=== PATIENT | male | born 1985 | race Caucasian/White ===

== ENCOUNTER 2019-03-16 16:49 | Emergency (ER) | payer SELFPAY ==
[2019-03-16 16:55] VITALS: BP 137/79; PULSE 102; RESP 16; TEMP 39.1; O2SAT 95; BMI 29.5
[2019-03-16 17:40] VITALS: TEMP 39.1
[2019-03-16] MEDS: ACETAMINOPHEN 325 MG TABLET 975 MG PO (17:40)
--- NOTE | 2019-03-16 18:17 | DI.RAD.S_ITS ---
PROCEDURE: XR CHEST 2V INDICATIONS: +flu, sob, cough TECHNIQUE: 2 views of the chest were acquired. COMPARISON: None. FINDINGS: Surgical changes and devices: None. Lungs and pleura: Lungs are clear. No pleural effusions or pneumothorax. Mediastinum: Mediastinal contours are normal. Heart size is normal. Bones and chest wall: No suspicious bony abnormalities. Soft tissues appear unremarkable. IMPRESSION: No evidence acute pulmonary process. Dictated by: Saul Stuart M.D. on 03/16/2019 at 18:59 Approved by: Saul Stuart M.D. on 03/16/2019 at 19:00
[2019-03-16 19:08] VITALS: BP 119/80; PULSE 80; RESP 18; TEMP 37.5; O2SAT 96
[2019-03-16 19:25] VITALS: TEMP 37.4
--- NOTE | 2019-03-16 19:27 | ED.URI ---
HPI - URI/Sore Throat <MICHA Smart - Last Filed: 03/16/19 21:13> General Chief Complaint: Upper Respiratory Symptoms Stated Complaint: FEVER,COUGH Time Seen by Provider: 03/16/19 18:01 Source: patient Mode of arrival: ambulatory Limitations: no limitations History of Present Illness HPI Narrative: Patient is a 33-year-old male a nonsmoker who presents with a chief complaint of fever, cough and shortness of breath since Tuesday. He has not taken anything for pain or for fever. He denies any nausea vomiting or diarrhea. Denies any sore throat or ear pain. He states he has a persistent dry cough. He is concerned about pneumonia. He denies any chest pain. Related Data Allergies Allergy/AdvReac Type Severity Reaction Status Date / Time No Known Drug Allergies Allergy Verified 03/16/19 17:01 Review of Systems <MICHA Smart - Last Filed: 03/16/19 21:13> Review of Systems GENERAL: Denies chills, fatigue, malaise, fever, sweats. HEENT: Denies sinus pain, ear pain, sore throat, difficulty swallowing, dizziness. RESPIRATORY: See HPI CARDIOVASCULAR: Denies chest pain, palpitations, orthopnea, edema, GASTROINTESTINAL: Denies nausea, vomiting, abdominal pain, diarrhea, constipation, melena. : Denies dysuria, frequency, incontinence, hematuria, urinary retention. MUSCULOSKELETAL: denies weakness, joint pain, or bony pain SKIN: Denies rash, skin lesions, or other NEUROLOGIC: Denies weakness, headache, numbness, change in speech, confusion, seizures, incoordination. PSYCHIATRIC: No concerning psychosocial issues. 12 point review of systems is negative except for those stated above PFSH <MICHA Smart - Last Filed: 03/16/19 21:13> Social History Smoking Status: Unknown if ever smoked Social History Smoking Status: Unknown if ever smoked Exam <MICHA Smart - Last Filed: 03/16/19 21:13> Narrative Exam Narrative: GENERAL: This is a well-nourished, well-developed patient, no acute distress HEAD: Atraumatic. Normocephalic. No temporal or scalp tenderness. EYES: Pupils equal round and reactive. Extraocular motions intact. No scleral icterus. No injection or drainage. ENT: Nose without bleeding, purulent drainage or septal hematoma. Throat without erythema, tonsillar hypertrophy or exudate. Uvula midline. Airway patent. NECK: Trachea midline. No JVD or lymphadenopathy. Supple, nontender, no meningeal signs. CARDIOVASCULAR: Regular rate and rhythm without murmurs, gallops, or rubs. RESPIRATORY: Clear to auscultation. Breath sounds equal bilaterally. No wheezes, rales, or rhonchi. Occasional cough on exam. No accessory muscle use. GASTROINTESTINAL: Abdomen soft, non-tender, nondistended. No hepato-splenomegaly, or palpable masses. No guarding. active bowel sounds all 4 quadrants EXTREMITIES: No clubbing, cyanosis, or edema. No joint tenderness, effusion, or edema noted. BACK: Nontender without deformity or crepitance. No flank tenderness. NEURO: AOx3. SKIN: No rash or erythema. Initial Vital Signs Initial Vital Signs: Vital Signs Temperature 102.4 F H 03/16/19 16:55 Pulse Rate 102 H 03/16/19 16:55 Respiratory Rate 16 03/16/19 16:55 Blood Pressure 137/79 03/16/19 16:55 Pulse Oximetry 95 03/16/19 16:55 <Marty Mayfield DO - Last Filed: 03/17/19 01:09> Initial Vital Signs Initial Vital Signs: Vital Signs Temperature 102.4 F H 03/16/19 16:55 Pulse Rate 102 H 03/16/19 16:55 Respiratory Rate 16 03/16/19 16:55 Blood Pressure 137/79 03/16/19 16:55 Pulse Oximetry 95 03/16/19 16:55 Course <MICHA Smart - Last Filed: 03/16/19 21:13> Orders Ordered: ED Orders 03/16/19 17:04 Influenza A and B by PCR Rapid Stat 03/16/19 18:17 XR chest 2V Stat Discontinued Medications Acetaminophen (Tylenol) 975 mg PO NOW ONE Stop: 03/16/19 17:39 Last Admin: 03/16/19 17:40 Dose: 975 mg Vital Signs - 8 hr 03/16/19 17:40 03/16/19 19:08 03/16/19 19:25 Temperature 102.4 F H 99.5 F 99.4 F Pulse Rate 80 Respiratory Rate 18 Blood Pressure Blood Pressure [Right Arm] 119/80 Pulse Oximetry 96 03/16/19 19:56 Temperature 98.9 F Pulse Rate 84 Respiratory Rate 16 Blood Pressure 114/84 Blood Pressure [Right Arm] Pulse Oximetry 99 <Marty Mayfield DO - Last Filed: 03/17/19 01:09> Orders Ordered: ED Orders 03/16/19 17:04 Influenza A and B by PCR Rapid Stat 03/16/19 18:17 XR chest 2V Stat Discontinued Medications Acetaminophen (Tylenol) 975 mg PO NOW ONE Stop: 03/16/19 17:39 Last Admin: 03/16/19 17:40 Dose: 975 mg Vital Signs - 8 hr 03/16/19 17:40 03/16/19 19:08 03/16/19 19:25 Temperature 102.4 F H 99.5 F 99.4 F Pulse Rate 80 Respiratory Rate 18 Blood Pressure Blood Pressure [Right Arm] 119/80 Pulse Oximetry 96 03/16/19 19:56 Temperature 98.9 F Pulse Rate 84 Respiratory Rate 16 Blood Pressure 114/84 Blood Pressure [Right Arm] Pulse Oximetry 99 MDM - URI/Sore Throat <MICHA Smart - Last Filed: 03/16/19 21:13> Lab Data Lab Results 03/16/19 Range/Units 17:04 Influenza A & B (PCR) Positive, type b H (Negative) Imaging Data Chest x-ray: Radiologist's impression: Ashish Solorzano 33 M [address] [address] XRay Report Signed Patient: Jeanine,Ashish JMR#: [id number] : 1985Acct:[id number] Age/Sex: 33 / MDate of Service: 03/16/19 Loc: ED Accession Number: [id number] Procedure: XR chest 2V Ordering Provider: Brinda Crane PROCEDURE: XR CHEST 2V INDICATIONS: +flu, sob, cough TECHNIQUE: 2 views of the chest were acquired. COMPARISON: None. FINDINGS: Surgical changes and devices: None. Lungs and pleura: Lungs are clear. No pleural effusions or pneumothorax. Mediastinum: Mediastinal contours are normal. Heart size is normal. Bones and chest wall: No suspicious bony abnormalities. Soft tissues appear unremarkable. IMPRESSION: No evidence acute pulmonary process. Dictated by: Saul Stuart M.D. on 03/16/2019 at 18:59 Approved by: Saul Stuart M.D. on 03/16/2019 at 19:00 [facility] Narrative Medical decision making narrative: The patient is a 33-year-old male who presents with chief complaint of fever, shortness of breath and cough since Tuesday. He had a normal chest x-ray. He did test positive for flu B. he is outside of the Tamiflu window. I discussed at length return precautions of shortness of breath, inability keep down fluids etc. Encouraged him to follow up with primary care provider. Encouraged [id number] remedies as needed and able. Patient questions or concerns upon discharge. <Marty Mayfield DO - Last Filed: 03/17/19 01:09> Lab Data Lab Results 03/16/19 Range/Units 17:04 Influenza A & B (PCR) Positive, type b H (Negative) Discharge Plan Departure Patient Disposition: Home Clinical Impression: Influenza Discharge Date/Time: 03/16/19 19:57 Interventions: ED Discharge Assessment Last Done: 03/16/19 19:56 Instructions: DI for Influenza -- Adult Activity Restrictions/Additional Instructions: You tested positive for the flu, but her chest x-ray shows no pneumonia. Please follow up with primary care provider. Please take [id number] medications as needed and able. Please come back to the emergency department for any acute concerns such as chest pain or shortness breath. <Marty Mayfield DO - Last Filed: 03/17/19 01:09> Cosign ED Attending Zainature Attestation: I was available for consultation during this patient's emergency department encounter
--- NOTE | 2019-03-16 19:31 | ED_ITS ---
HPI - URI/Sore Throat <MICHA Smart - Last Filed: 03/16/19 21:13> General Chief Complaint: Upper Respiratory Symptoms Stated Complaint: FEVER,COUGH Time Seen by Provider: 03/16/19 18:01 Source: patient Mode of arrival: ambulatory Limitations: no limitations History of Present Illness HPI Narrative: Patient is a 33-year-old male a nonsmoker who presents with a chief complaint of fever, cough and shortness of breath since Tuesday. He has not taken anything for pain or for fever. He denies any nausea vomiting or diarrhea. Denies any sore throat or ear pain. He states he has a persistent dry cough. He is concerned about pneumonia. He denies any chest pain. Related Data Allergies Allergy/AdvReac Type Severity Reaction Status Date / Time No Known Drug Allergies Allergy Verified 03/16/19 17:01 Review of Systems <MICHA Smart - Last Filed: 03/16/19 21:13> Review of Systems GENERAL: Denies chills, fatigue, malaise, fever, sweats. HEENT: Denies sinus pain, ear pain, sore throat, difficulty swallowing, dizziness. RESPIRATORY: See HPI CARDIOVASCULAR: Denies chest pain, palpitations, orthopnea, edema, GASTROINTESTINAL: Denies nausea, vomiting, abdominal pain, diarrhea, constipation, melena. : Denies dysuria, frequency, incontinence, hematuria, urinary retention. MUSCULOSKELETAL: denies weakness, joint pain, or bony pain SKIN: Denies rash, skin lesions, or other NEUROLOGIC: Denies weakness, headache, numbness, change in speech, confusion, seizures, incoordination. PSYCHIATRIC: No concerning psychosocial issues. 12 point review of systems is negative except for those stated above PFSH <MICHA Smart - Last Filed: 03/16/19 21:13> Social History Smoking Status: Unknown if ever smoked Social History Smoking Status: Unknown if ever smoked Exam <MICHA Smart - Last Filed: 03/16/19 21:13> Narrative Exam Narrative: GENERAL: This is a well-nourished, well-developed patient, no acute distress HEAD: Atraumatic. Normocephalic. No temporal or scalp tenderness. EYES: Pupils equal round and reactive. Extraocular motions intact. No scleral icterus. No injection or drainage. ENT: Nose without bleeding, purulent drainage or septal hematoma. Throat without erythema, tonsillar hypertrophy or exudate. Uvula midline. Airway patent. NECK: Trachea midline. No JVD or lymphadenopathy. Supple, nontender, no meningeal signs. CARDIOVASCULAR: Regular rate and rhythm without murmurs, gallops, or rubs. RESPIRATORY: Clear to auscultation. Breath sounds equal bilaterally. No wheezes, rales, or rhonchi. Occasional cough on exam. No accessory muscle use. GASTROINTESTINAL: Abdomen soft, non-tender, nondistended. No hepato- splenomegaly, or palpable masses. No guarding. active bowel sounds all 4 quadrants EXTREMITIES: No clubbing, cyanosis, or edema. No joint tenderness, effusion, or edema noted. BACK: Nontender without deformity or crepitance. No flank tenderness. NEURO: AOx3. SKIN: No rash or erythema. Initial Vital Signs Initial Vital Signs: Vital Signs Temperature 102.4 F H 03/16/19 16:55 Pulse Rate 102 H 03/16/19 16:55 Respiratory Rate 16 03/16/19 16:55 Blood Pressure 137/79 03/16/19 16:55 Pulse Oximetry 95 03/16/19 16:55 <Marty Mayfield DO - Last Filed: 03/17/19 01:09> Initial Vital Signs Initial Vital Signs: Vital Signs Temperature 102.4 F H 03/16/19 16:55 Pulse Rate 102 H 03/16/19 16:55 Respiratory Rate 16 03/16/19 16:55 Blood Pressure 137/79 03/16/19 16:55 Pulse Oximetry 95 03/16/19 16:55 Course <MICHA Smart - Last Filed: 03/16/19 21:13> Orders Ordered: ED Orders 03/16/19 17:04 Influenza A and B by PCR Rapid Stat 03/16/19 18:17 XR chest 2V Stat Discontinued Medications Acetaminophen (Tylenol) 975 mg PO NOW ONE Stop: 03/16/19 17:39 Last Admin: 03/16/19 17:40 Dose: 975 mg Vital Signs - 8 hr 03/16/19 17:40 03/16/19 19:08 03/16/19 19:25 Temperature 102.4 F H 99.5 F 99.4 F Pulse Rate 80 Respiratory Rate 18 Blood Pressure Blood Pressure [Right Arm] 119/80 Pulse Oximetry 96 03/16/19 19:56 Temperature 98.9 F Pulse Rate 84 Respiratory Rate 16 Blood Pressure 114/84 Blood Pressure [Right Arm] Pulse Oximetry 99 <Marty Mayfield DO - Last Filed: 03/17/19 01:09> Orders Ordered: ED Orders 03/16/19 17:04 Influenza A and B by PCR Rapid Stat 03/16/19 18:17 XR chest 2V Stat Discontinued Medications Acetaminophen (Tylenol) 975 mg PO NOW ONE Stop: 03/16/19 17:39 Last Admin: 03/16/19 17:40 Dose: 975 mg Vital Signs - 8 hr 03/16/19 17:40 03/16/19 19:08 03/16/19 19:25 Temperature 102.4 F H 99.5 F 99.4 F Pulse Rate 80 Respiratory Rate 18 Blood Pressure Blood Pressure [Right Arm] 119/80 Pulse Oximetry 96 03/16/19 19:56 Temperature 98.9 F Pulse Rate 84 Respiratory Rate 16 Blood Pressure 114/84 Blood Pressure [Right Arm] Pulse Oximetry 99 MDM - URI/Sore Throat <MICHA Smart - Last Filed: 03/16/19 21:13> Lab Data Lab Results 03/16/19 Range/Units 17:04 Influenza A & B (PCR) Positive, type b H (Negative) Imaging Data Chest x-ray: Radiologist's impression: Ashish Solorzano 33 M [address] [address] XRay Report Signed Patient: Jeanine,Ashish JMR#: [id number] : 1985Acct:[id number] Age/Sex: 33 / MDate of Service: 03/16/19 Loc: ED Accession Number: [id number] Procedure: XR chest 2V Ordering Provider: Brinda Crane PROCEDURE: XR CHEST 2V INDICATIONS: +flu, sob, cough TECHNIQUE: 2 views of the chest were acquired. COMPARISON: None. FINDINGS: Surgical changes and devices: None. Lungs and pleura: Lungs are clear. No pleural effusions or pneumothorax. Mediastinum: Mediastinal contours are normal. Heart size is normal. Bones and chest wall: No suspicious bony abnormalities. Soft tissues appear unremarkable. IMPRESSION: No evidence acute pulmonary process. Dictated by: Saul Stuart M.D. on 03/16/2019 at 18:59 Approved by: Saul Stuart M.D. on 03/16/2019 at 19:00 [facility] Narrative Medical decision making narrative: The patient is a 33-year-old male who presents with chief complaint of fever, shortness of breath and cough since Tuesday. He had a normal chest x-ray. He did test positive for flu B. he is outside of the Tamiflu window. I discussed at length return precautions of nhung rtness of breath, inability keep down fluids etc. Encouraged him to follow up with primary care provider. Encouraged [id number] remedies as needed and able. Patient questions or concerns upon discharge. <Marty Mayfield DO - Last Filed: 03/17/19 01:09> Lab Data Lab Results 03/16/19 Range/Units 17:04 Influenza A & B (PCR) Positive, type b H (Negative) Discharge Plan Departure Patient Disposition: Home Clinical Impression: Influenza Discharge Date/Time: 03/16/19 19:57 Interventions: ED Discharge Assessment Last Done: 03/16/19 19:56 Instructions: DI for Influenza -- Adult Activity Restrictions/Additional Instructions: You tested positive for the flu, but her chest x-ray shows no pneumonia. Please follow up with primary care provider. Please take [id number] medications as needed and able. Please come back to the emergency department for any acute concerns such as chest pain or shortness breath. <Marty Mayfield DO - Last Filed: 03/17/19 01:09> Cosign ED Attending Zainature Attestation: I was available for consultation during this patient's emergency department encounter
[2019-03-16 19:56] VITALS: BP 114/84; PULSE 84; RESP 16; TEMP 37.2; O2SAT 99
== END 2019-03-16 19:57 | disposition home or self-care (01) ==
PROVIDERS: Emergency Medicine; Emergency Provider Nurse Practitioner Family
DX: J11.1 Influenza due to unidentified influenza virus with other respiratory manifestations (principal)
CPT/HCPCS: 71046; 87400; 99282; 99283